=== PATIENT | female | born 1965 | race Caucasian/White ===

== ENCOUNTER 2018-11-13 16:45 | Emergency (ER) | payer SELFPAY ==
[~2018-11-13] VITALS: Ht 170.2 cm; Wt 64.5 kg
[2018-11-13 16:54] VITALS: BP 157/78; Ht 170.2 cm; Wt 64.5 kg
== END 2018-11-13 19:19 | disposition left against medical advice (07) ==
LOC: D.ER 16:45
DX: I10 Essential (primary) hypertension (principal)

== ENCOUNTER 2020-07-16 15:23 | Emergency (ER) | payer OTHER ==
[~2020-07-16] VITALS: Ht 170.2 cm; Wt 64.5 kg
[2020-07-16 15:29] VITALS: BP 142/60; Ht 170.2 cm; Wt 64.5 kg
[2020-07-16] MEDS ORDERED: BACLOFEN20 M1 PO (16:32)
[2020-07-16] MEDS ORDERED: IBUPROFEN800 MG PO (16:32)
== END 2020-07-16 17:11 | disposition home or self-care (01) ==
LOC: D.ER 15:23
DX: S39.012A Strain of muscle, fascia and tendon of lower back, initial encounter (principal); M62.838 Other muscle spasm; V89.2XXA Person injured in unspecified motor-vehicle accident, traffic, initial encounter; Y93.9 Activity, unspecified; Y92.9 Unspecified place or not applicable; M25.552 Pain in left hip

== ENCOUNTER 2020-09-02 15:55 | Emergency (ER) | payer SELFPAY ==
[~2020-09-02] VITALS: Ht 170.2 cm; Wt 63.6 kg
[~2020-09-02 15:55] MED LIST: BACLOFEN20 M1 PO; IBUPROFEN800 MG PO
[2020-09-02 16:00] VITALS: Ht 170.2 cm; Wt 63.6 kg
[2020-09-02] MEDS ORDERED: METHOCARBAMOL750 MG NG (18:33)
[2020-09-02] MEDS ORDERED: VOLTAREN75 MG PO (18:33)
[2020-09-02 23:33] VITALS: BP 128/86
== END 2020-09-02 18:59 | disposition home or self-care (01) ==
LOC: D.ER 15:55
DX: S39.012A Strain of muscle, fascia and tendon of lower back, initial encounter (principal); M62.838 Other muscle spasm; V89.2XXA Person injured in unspecified motor-vehicle accident, traffic, initial encounter; Y93.9 Activity, unspecified; Y92.9 Unspecified place or not applicable; M54.2 Cervicalgia